=== PATIENT | female | born 2000 | race Two or more races ===

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

== ENCOUNTER 2022-04-14 12:48 | Emergency (ER) | payer OTHER, SELFPAY ==
--- NOTE | ~2022-04-14 | XR_ITS ---
EXAMINATION: XR SHOULDER, RIGHT CLINICAL INFORMATION: Injury, pain COMPARISON: None TECHNIQUE: AP external rotation, Grashey, scapular Y, and axillary views of the right shoulder. FINDINGS: No visible acute fracture or dislocation. Glenohumeral and acromioclavicular alignment is anatomic with normal joint space. No abnormal soft tissue calcifications. XR/XR shoulder RT min 2V IMPRESSION: No evidence of acute osseous abnormality.
[2022-04-14 13:21] VITALS: BP 113/75; PULSE 76; RESP 18; TEMP 36.7; O2SAT 98; BMI 35.3
--- NOTE | 2022-04-14 13:23 | ED_ITS ---
HPI - Extremity Injury (Upper) General Chief Complaint: Extremity Problem <Patricia Le NP - Last Filed: 04/14/22 13:24> Stated Complaint: r shoulder inj work related <Patricia Le NP - Last Filed: 04/14/22 13:24> Time Seen by Provider: 04/14/22 16:14 <Patricia Le NP - Last Filed: 04/14/22 13:24> Source: patient <BARBARA Holman - Last Filed: 04/14/22 17:51> Mode of arrival: ambulatory <BARBARA Holman - Last Filed: 04/14/22 17:51> Limitations: no limitations <BARBARA Holman Last Filed: 04/14/22 17:51> History of Present Illness HPI narrative: 21-year-old female presents to ED for right shoulder pain after her patient fell onto her shoulder earlier this morning. Patient states pain of right shoulder when she moves her shoulder. Patient denies any head trauma or any other concerning traumatic or physical complaints. <BARBARA Holman - Last Filed: 04/14/22 17:51> Related Data Home Medications: Previous Rx's Medication Instructions Recorded ondansetron HCl 4 mg tablet 4 mg PO Q8H PRN nausea and 11/20/20 (Zofran) vomiting #10 tabs cephalexin 500 mg capsule 500 mg PO QID 10 days #40 caps 07/18/21 doxycycline hyclate 100 mg tablet 100 mg PO BID #20 tabs 07/18/21 cyclobenzaprine 10 mg tablet 10 mg PO BEDTIME PRN muscle spasm 04/14/22 7 days #7 tabs ibuprofen 400 mg tablet 400 mg PO Q6H PRN pain 7 days #28 04/14/22 tabs prednisone 20 mg tablet 40 mg PO DAILY 5 days #10 tabs 04/14/22 <Patricia Le NP - Last Filed: 04/14/22 13:24> Allergies/Adverse Reactions: Allergies Allergy/AdvReac Type Severity Reaction Status Date / Time No Known Allergies Allergy Verified 12/30/21 20:58 <Patricia Le NP - Last Filed: 04/14/22 13:24> Review of Systems Review of Systems: Right shoulder pain <BARBARA Holman - Last Filed: 04/14/22 17:51> Yes all other systems are reviewed and are negative <BARBARA Holman - Last Filed: 04/14/22 17:51> [facility] Social History Social History: Social History Advance Directives: No Advance Directives Information Provided: No <Patricia Le NP - Last Filed: 04/14/22 13:24> Physical Exam Vital Signs: Vital Signs: Last Vital Signs Temp 98.0 F 04/14/22 13:21 Pulse 76 04/14/22 13:21 Resp 18 04/14/22 13:21 BP 113/75 04/14/22 13:21 Pulse Ox 98 04/14/22 13:21 O2 Del Method 04/14/22 13:21 BMI result Body Mass Index 35.3 <Patricia Le NP - Last Filed: 04/14/22 13:24> Vital Signs: Last Vital Signs Temp 98.0 F 04/14/22 13:21 Pulse 76 04/14/22 13:21 Resp 18 04/14/22 13:21 BP 113/75 04/14/22 13:21 Pulse Ox 98 04/14/22 13:21 O2 Del Method 04/14/22 13:21 BMI result Body Mass Index 35.3 <BARBARA Holman - Last Filed: 04/14/22 17:51> Const: General: cooperative, healthy appearing, comfortable, no acute distress, well developed, alert, awake and Physically active <BARBARA Holman - Last Filed: 04/14/22 17:51> Orientation/consciousness: oriented to person, oriented to place, oriented to time and patient oriented x3 <BARBARA Holman - Last Filed: 04/14/22 17:51> HEENT: Head: Yes normal to inspection, Yes No palpable skull fracture present, Yes normocephalic, Yes atraumatic and No abrasion <BARBARA Holman - Last Filed: 04/14/22 17:51> Eyes: General: appearance normal, both eyes and all related structures <BARBARA Holman - Last Filed: 04/14/22 17:51> Neck: Neck: Yes normal visual inspection, Yes full ROM, Yes no lymphadenop athy, Yes no meningeal signs, Yes trachea midline, Yes supple, No anterior neck swelling and No tender <BARBARA Holman Last Filed: 04/14/22 17:51> Chest: Chest palpation & inspection: normal inspection of the chest and normal palpation of entire chest wall <BARBARA Holman Last Filed: 04/14/22 17:51> Resp: Effort & Inspection: normal respiratory effort and able to speak in complete sentences <BARBARA Holman Last Filed: 04/14/22 17:51> Auscultation: clear to auscultation bilaterally <BARBARA Holman Last Filed: 04/14/22 17:51> Cardio: Jugular venous distension: no JVD <BARBARA Holman Last Filed: 04/14/22 17:51> Heart sounds: S1 normal heart sound present and S2 normal heart sound present <BARABRA Holman Last Filed: 04/14/22 17:51> GI: Inspection: Yes normal to inspection and No abdominal wall ecchymosis <BARBARA Holman Last Filed: 04/14/22 17:51> Palpation (GI): Soft to palpation, not firm, nontender, no guarding and not rigid <BARBARA Holman Last Filed: 04/14/22 17:51> : General: No CVA tenderness and Yes no CVA tenderness <BARBARA Holman Last Filed: 04/14/22 17:51> Back/Spine/Pelvis: Back: no CVA tenderness, No CVA tenderness and No back tenderness <BARBARA Holman Last Filed: 04/14/22 17:51> Skin: General skin exam: no rashes or lesions noted, elasticity normal and turgor normal <BARBARA Holman Last Filed: 04/14/22 17:51> Neuro: General: oriented to person, oriented to place, oriented to time, patient oriented x3, gait normal, tone normal, moves all extremities, Normal light touch and pain sensation, no meningeal signs, no focal motor deficits, CN's II-XI intact bilaterally and normal sensation to monofilament <BARBARA Holman - Last Filed: 04/14/22 17:51> Extrem: General: Yes normal to inspection and Yes full ROM <BARBARA Holman - Last Filed: 04/14/22 17:51> Shoulder/upper arm images: 1. Positive for tenderness on palpation. Positive for pain on range of motion. Negative for crepitus, deformity, episode Siddharth, erythema, swelling. Rest of extremity normal. Neurovascular exam intact. Motor exam is limited due to shoulder pain. <Patricia Le NP - Last Filed: 04/14/22 13:24> Shoulder/upper arm images: 1. Positive for tenderness on palpation. Positive for pain on range of motion. Negative for crepitus, deformity, episode Siddharth, erythema, swelling. Rest of extremity normal. Neurovascular exam intact. Motor exam is limited due to shoulder pain. <BARBARA Holman - Last Filed: 04/14/22 17:51> Psych: Appearance: grossly normal, well kempt and not disheveled <BARBARA Holman Last Filed: 04/14/22 17:51> Course Course Course Narrative: This is a rapid medical exam. 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 21-year-old female previously healthy here with right shoulder pain after an injury which occurred at work today. Will check x-rays. Vitals stable <Patricia Le NP - Last Filed: 04/14/22 13:24> Reevaluation(s) Reevaluation #1: Patient has range of motion of shoulder but with pain. X-ray negative for fracture or dislocation. Patient educated on possibility of rotator cuff/any other muscle tear/ligament injury due to trauma. Patient requests sling. Patient informed not to stay in sling for long hours so she will not get frozen shoulder. Patient will be discharged on pain medication steroids and muscle relaxer. Patient informed she may need follow-up with primary care to get MRI machine is no muscle/ligament/tendon injury tear of right shoulder. <BARBARA Holman - Last Filed: 04/14/22 17:51> Time: 16:42 <BARBARA Holman Last Filed: 04/14/22 17:51> Medications Administered Discontinued Medications Generic Name Dose Route Start Last Admin Trade Name Freq PRN Reason Stop Dose Admin Ibuprofen 800 mg 04/14/22 16:21 04/14/22 17:00 Ibuprofen 800 Mg Tablet PO 04/14/22 16:22 800 mg ONCE ONE Administration Prednisone 40 mg 04/14/22 16:23 04/14/22 17:00 Prednisone 20 Mg Tablet PO 04/14/22 16:24 40 mg ONCE ONE Administration <Patricia Le NP - Last Filed: 04/14/22 13:24> Medications Administered Discontinued Medications Generic Name Dose Route Start Last Admin Trade Name Aricq PRN Reason Stop Dose Admin Ibuprofen 800 mg 04/14/22 16:21 04/14/22 17:00 Ibuprofen 800 Mg Tablet PO 04/14/22 16:22 800 mg ONCE ONE Administration Prednisone 40 mg 04/14/22 16:23 04/14/22 17:00 Prednisone 20 Mg Tablet PO 04/14/22 16:24 40 mg ONCE ONE Administration <BARBARA Holman - Last Filed: 04/14/22 17:51> Medical Decision Making Medical Decision Making MDM Narrative: 21 yold RIght shoulder pain after patient fell on right shoulder. X-ray ordered. Patient in distress <BARBARA Holman - Last Filed: 04/14/22 17:51> Differential Diagnosis Differential Diagnoses: The differential diagnosis associated with the presentation includes (Shoulder dislocation, shoulder fracture, tendon injury, shoulder muscle injury) <BARBARA Holman - Last Filed: 04/14/22 17:51> Radiology Impression Discussion of test interpretation with radiology: I have reviewed the radiologist's reading. <BARBARA Holman - Last Filed: 04/14/22 17:51> Prescription Management I considered prescription management with: Pain Medication <BARABRA Holman - Last Filed: 04/14/22 17:51> Sling <BARBARA Holman - Last Filed: 04/14/22 17:51> Discharge Plan Discharge Clinical Impression: Sprain of right shoulder <Patricia Le NP - Last Filed: 04/14/22 13:24> Patient Disposition: Home, Self-Care <Patricia eL NP - Last Filed: 04/14/22 13:24> Instructions: Shoulder Sprain (ED) <Patricia Le NP - Last Filed: 04/14/22 13:24> Additional Instructions: If pain does not improve you will need follow-up with your primary care provider for MRI to make sure there is no muscle/tendon/ligament injury. Will be discharged with pain medication, steroids, and muscle relaxer. Return to the ED immediately for any swelling of extremity, inability to move, fever, chills, bluish black discoloration, chest pain, shortness of breath, or any other concer duran symptoms. Sling should not be kept on for long hours. At times remove sling to move right upper extremity to prevent frozen shoulder.. <Patricia Le NP - Last Filed: 04/14/22 13:24> Prescriptions: New prednisone 20 mg tablet 40 mg PO DAILY 5 Days Qty: 10 0RF cyclobenzaprine 10 mg tablet 10 mg PO BEDTIME PRN (Reason: muscle spasm) 7 Days Qty: 7 0RF Rx Instructions: side effect is drowsiness. ibuprofen 400 mg tablet 400 mg PO Q6H PRN (Reason: pain) 7 Days Qty: 28 0RF No Action ondansetron HCl [Zofran] 4 mg tablet 4 mg PO Q8H PRN (Reason: nausea and vomiting) Qty: 10 0RF cephalexin 500 mg capsule 500 mg PO QID 10 Days Qty: 40 0RF doxycycline hyclate 100 mg tablet 100 mg PO BID Qty: 20 0RF <Patricia Le NP - Last Filed: 04/14/22 13:24> Stand Alone Forms: Work/School Release <Patricia Le NP - Last Filed: 04/14/22 13:24> Discharge Date/Time: 04/14/22 17:47 <Patricia Le NP - Last Filed: 04/14/22 13:24> Print Language: Kiswahili <Patricia Le NP - Last Filed: 04/14/22 13:24>
[2022-04-14] MEDS: predniSONE 20 MG TABLET 40 MG PO (17:00)
[2022-04-14] MEDS: Ibuprofen 800 MG TABLET PO (17:00)
== END 2022-04-14 17:47 | disposition home or self-care (01) ==
PROVIDERS: Emergency Provider Emergency Medicine Emergency Medical Services
DX: S43.401A Unspecified sprain of right shoulder joint, initial encounter (principal); M25.511 Pain in right shoulder; X58.XXXA Exposure to other specified factors, initial encounter; Y93.9 Activity, unspecified; Y92.9 Unspecified place or not applicable; Y99.9 Unspecified external cause status; Z79.899 Other long term (current) drug therapy
CPT/HCPCS: 73030; 99283

== ENCOUNTER 2022-07-23 18:54 | Emergency (ER) | payer MEDICAID, SELFPAY ==
--- NOTE | ~2022-07-23 | US_ITS ---
EXAMINATION: US ABDOMEN LIMITED CLINICAL INFORMATION: Right upper quadrant pain, nausea, vomiting and diarrhea. COMPARISON: None available. TECHNIQUE: Real-time imaging of the right upper quadrant abdominal viscera. FINDINGS: PANCREAS: Largely obscured by overlapping bowel gas. LIVER: Normal. The liver is normal in size. The liver contour is normal. Parenchymal echogenicity is normal. No focal hepatic lesion. There is no intrahepatic biliary duct dilatation seen. GALLBLADDER: Normal. The gallbladder is physiologically distended without evidence of stones, sludge, polyps, wall thickening or pericholecystic fluid. COMMON BILE DUCT: Normal in caliber measuring 0.3 cm in diameter. RIGHT KIDNEY: Normal. No hydronephrosis. No renal calculi or focal parenchymal lesions. The kidney measures 10.0 cm in maximum dimension. FREE FLUID: None. US/US abdomen limited IMPRESSION: Unremarkable examination, with imaging of the pancreas technically limited.
[2022-07-23 19:17] VITALS: BP 122/87; PULSE 120; RESP 18; TEMP 37.1; O2SAT 100; BMI 35.1
--- NOTE | 2022-07-23 19:18 | ED.NAVMDI ---
HPI - Nausea/Vomiting/Diarrhea General Chief complaint: Nausea/Vomiting/Diarrhea <BARBARA Ureña - Last Filed: 07/23/22 19:21> Stated complaint: vomiting blood, stomach pressure <BARBARA Ureña - Last Filed: 07/23/22 19:21> Time Seen by Provider: 07/23/22 22:54 <BARBARA Ureña - Last Filed: 07/23/22 19:21> Source: patient, RN notes reviewed and old records reviewed <Wyatt Canales - Last Filed: 07/23/22 23:14> Mode of arrival: ambulatory <Wyatt Canales - Last Filed: 07/23/22 23:14> Limitations: no limitations <Wyatt Canales - Last Filed: 07/23/22 23:14> History of Present Illness HPI Narrative: 22-year-old female with past medical history significant for PCOS presents for evaluation of abdominal pain and vomiting patient reports that she woke up with the symptoms this morning. She denies any recent travel. She does states that her mother was recently traveling to [place] and has similar symptoms at home patient reports upper abdominal pain. She describes vomiting dark colored stuff. She also believes that she has bloody bowel movements when I asked her which color she states yellow. denies any history of GI bleed or anticoagulation use <Wyatt Canales - Last Filed: 07/23/22 23:14> Associated nausea: Yes <Wyatt Canales - Last Filed: 07/23/22 23:14> Related Data Home medications: Previous Rx's Medication Instructions Recorded ondansetron HCl 4 mg tablet 4 mg PO Q8H PRN nausea and 11/20/20 (Zofran) vomiting #10 tabs cephalexin 500 mg capsule 500 mg PO QID 10 days #40 caps 07/18/21 doxycycline hyclate 100 mg tablet 100 mg PO BID #20 tabs 07/18/21 cyclobenzaprine 10 mg tablet 10 mg PO BEDTIME PRN muscle spasm 04/14/22 7 days #7 tabs ibuprofen 400 mg tablet 400 mg PO Q6H PRN pain 7 days #28 04/14/22 tabs prednisone 20 mg tablet 40 mg PO DAILY 5 days #10 tabs 04/14/22 omeprazole 20 mg tablet,delayed 20 mg PO DAILY #14 tabs 07/23/22 release ondansetron 4 mg disintegrating 4 mg PO Q8H PRN nausea and 07/23/22 tablet vomiting #20 tabs <BARBARA Ureña - Last Filed: 07/23/22 19:21> Allergies/Adverse reactions: Allergies Allergy/AdvReac Type Severity Reaction Status Date / Time No Known Allergies Allergy Verified 07/23/22 19:17 <BARBARA Ureña - Last Filed: 07/23/22 19:21> Review of Systems Constitutional: Constitutional: Denies headache(s), Reports malaise and Reports weakness <Wyatt Canales - Last Filed: 07/23/22 23:14> Eyes: Eyes: Denies blurry vision <Wyatt Canales - Last Filed: 07/23/22 23:14> ENT: Denies headache(s) <Wyattnito Canales - Last Filed: 07/23/22 23:14> Cardiovascular: Cardiovascular: Denies chest pain and Denies dyspnea <Wyattnito Canales - Last Filed: 07/23/22 23:14> Respiratory: Respiratory: Denies cough and Denies dyspnea <Wyatt ONick - Last Filed: 07/23/22 23:14> Gastrointestinal: Gastrointestinal: Reports abdominal pain, Reports change in stool character, Reports coffee ground emesis, Reports dyspepsia, Reports nausea and Reports vomiting <Wyattnito Patricky - Last Filed: 07/23/22 23:14> Musculoskeletal: Musculoskeletal: Denies back pain <Wyatt Canales - Last Filed: 07/23/22 23:14> Neurologic: Denies headache(s) and Reports weakness <Wyattnito Canales - Last Filed: 07/23/22 23:14> Psychiatric: Psychiatric: Denies anxiety <Wyatt Patricky - Last Filed: 07/23/22 23:14> COUNTS INCLUDE 234 BEDS AT THE [facility] Social History Social History: Social History Advance Directives: No Advance Directives Information Provided: No <BARBARA Ureña - Last Filed: 07/23/22 19:21> Physical Exam Vital Signs: Vital Signs: Last Vital Signs Temp 98.8 F 07/23/22 19:17 Pulse 120 H 07/23/22 19:17 Resp 18 07/23/22 19:17 BP 122/87 07/23/22 19:17 Pulse Ox 100 07/23/22 19:17 O2 Del Method Room Air 07/23/22 19:17 BMI result Body Mass Index 35.1 <BARBARA Ureña - Last Filed: 07/23/22 19:21> Vital Signs: Last Vital Signs Temp 98.8 F 07/23/22 19:17 Pulse 120 H 07/23/22 19:17 Resp 18 07/23/22 19:17 BP 122/87 07/23/22 19:17 Pulse Ox 100 07/23/22 19:17 O2 Del Method Room Air 07/23/22 19:17 BMI result Body Mass Index 35.1 <Wyatt Canales - Last Filed: 07/23/22 23:14> Const: General: healthy appearing, comfortable, no acute distress, alert and awake <Wyatt Canales - Last Filed: 07/23/22 23:14> Nutritional Appearance: well nourished <Wyatt Canales - Last Filed: 07/23/22 23:14> Orientation/consciousness: patient oriented x3 <Wyatt Canales - Last Filed: 07/23/22 23:14> HEENT: Head: Yes normocephalic and Yes atraumatic <Wyatt Canales - Last Filed: 07/23/22 23:14> Neck: Neck: Yes full ROM <Wyatt Canales - Last Filed: 07/23/22 23:14> Resp: Effort & Inspection: normal respiratory effort, able to speak in complete sentences, no audible wheezes and not labored <Wyatt Canales - Last Filed: 07/23/22 23:14> Auscultation: clear to auscultation bilaterally <Wyatt Canales Last Filed: 07/23/22 23:14> Cardio: Rate: regular rate <Wyatt Canales - Last Filed: 07/23/22 23:14> Rhythm: regular rhythm <Wyatt Canales - Last Filed: 07/23/22 23:14> GI: Inspection: No distended <Wyatt Canales - Last Filed: 07/23/22 23:14> Palpation (GI): Soft to palpation, not firm, nontender, no guarding and not rigid <Wyatt Canales - Last Filed: 07/23/22 23:14> Auscultation: normoactive bowel sounds <Wyatt Patricky - Last Filed: 07/23/22 23:14> Rectal Exam - Female: deferred ( patient declined rectal examination) <Wyatt Patricky - Last Filed: 07/23/22 23:14> Skin: General skin exam: no rashes or lesions noted and elasticity normal <Wyattnito Patrick Last Filed: 07/23/22 23:14> Neuro: General: patient oriented x3 <Wyattnito Patrick Last Filed: 07/23/22 23:14> Cranial nerves: Yes CN's II-XII intact bilaterally and Yes Bilaterally intact EOM present <Wyattnito Canales Last Filed: 07/23/22 23:14> Cognition (Neuro): normal cognition <Wyatt Canales Last Filed: 07/23/22 23:14> Course Course Course Narrative: RME - 22 y/o female with history of PCOS who presents to the ER for evaluation of constant central abdominal pains, nausea, coffee ground emesis, and yellow watery diarrhea that started last night. Recently visited her mom who had similar symptoms. Tachycardic in triage with RUQ tenderness on examination. Plan: lab workup and U/S RUQ <BARBARA Ureña - Last Filed: 07/23/22 19:21> Medical Decision Making Medical Decision Making MDM Narrative: 22-year-old female presents for evaluation of abdominal pain, vomiting and diarrhea. No risk factors for C diff. she reports vomiting dark color which she described as coffee-ground emesis. The patient has not vomited in the 4 hour she has been in the emergency department. She declines rectal examination to perform guaiac testing. I held a low suspicion the patient has an active GI bleed. Her hemoglobin and hematocrit are consistent with her baseline. her BUN to creatinine ratio is not indicative of a GI bleed. the patient was initially tachycardic to 120 but this improved without intervention. Will discharge the patient with Protonix, Zoisai have her follow-up with GI as an outpatient for endoscopy. the patient's T bili was elevated to 1.5, but ultrasound gallbladder was unremarkable <Wyatt IrwinИринаNick - Last Filed: 07/23/22 23:14> Differential Diagnosis gastroenteritis Peptic ulcer disease GI bleed viral syndrome <Wyatt IrwinИринаNick - Last Filed: 07/23/22 23:14> Lab Data MDM Lab Attestation statement: I reviewed the patient's lab results. <Wyatt RufusFairhope - Last Filed: 07/23/22 23:14> no significant lab abnormalities <Wyatt Canales - Last Filed: 07/23/22 23:14> Result Diagrams: 07/23/22 19:29 07/23/22 19:29 <BARBARA Ureña - Last Filed: 07/23/22 19:21> Labs: Lab Results 07/23/22 07/23/22 07/23/22 Range/Units 19:29 19:29 19:29 WBC 9.2 (4.8-10.8) X10*3/uL RBC 4.79 (4.20-5.50) X10*6/uL Hgb 12.9 (12.0-16.0) g/dl Hct 40.2 (37.0-47.0) % MCV 83.9 (80.0-98.0) fL MCH 26.9 L (27.0-33.0) pg MCHC 32.1 (31.0-35.0) g/dl RDW 12.8 (11.0-16.0) % Plt Count 263 D (160-400) X10*3/uL MPV 9.8 (9.4-12.3) fL Immature Gran % (Auto) 0.2 (0.0-0.4) % Neut % (Auto) 83.4 H (45-73) % Lymph % (Auto) 8.8 L (20-40) % [place] % (Auto) 7.2 (2-11) % Eos % (Auto) 0.2 (0-4) % Baso % (Auto) 0.2 (0-2) % Lymph # (Auto) 0.8 L (1.2-4.9) X10*3/uL [place] # (Auto) 0.7 (0.1-1.2) X10*3/uL Eos # (Auto) 0.0 (0.0-0.4) X10*3/uL Baso # (Auto) 0.0 (0.0-0.2) X10*3/uL Abs Immat Gran (auto) 0.02 (0.00-0.03) X10*3/uL Absolute Neuts (auto) 7.6 (2.0-8.3) x10*3/uL Absolute Nucleated RBC 0.000 (0.0-0.012) X10*3/uL Nucleated RBC % (auto) 0.0 (0.0-0.2) /100WBC PT 12.0 (10.0-13.1) SEC INR 1.0 (0.9-1.1) APTT 33.0 (26.0-36.4) SEC Sodium 142 (135-145) mmol/L Potassium 4.2 (3.3-5.1) mmol/L Chloride 107 (96-108) mmol/L Carbon Dioxide 25 (22-29) mmol/L Anion Gap 14 (12-20) BUN 9 (9-16) mg/dL Creatinine 0.76 (0.5-1.4) mg/dL Estim Creat Clear Calc 107.1 Estimated GFR > 60 Random Glucose 97 (60-115) mg/dL Calcium 9.0 D (8.4-10.2) mg/dL Magnesium 1.7 (1.6-2.6) mg/dL Total Bilirubin 1.5 H (0.0-1.0) mg/dL Direct Bilirubin 0.4 (0.0-0.5) mg/dL AST 16 (5-31) U/L ALT 21 (0-31) U/L Alkaline Phosphatase 91 (39-117) U/L Total Protein 7.0 (6.5-8.0) g/dL Albumin 4.3 (3.5-5.0) g/dL Lipase 15 (8-78) U/L Urine Color Urine Appearance Urine pH (5.0-9.0) Ur Specific [place] (1.005-1.025) Urine Protein (Neg-Trace) mg/dL Urine Glucose (UA) (Negative) mg/dL Urine Ketones (Negative) mg/dL Urine Blood (Negative) Urine Nitrite (Negative) Ur Leukocyte Esterase (Negative) Urine Test (NEGATIVE) Urine Opiates Screen (Not Detect) Urine Fentanyl Screen (Not Detect) Ur Barbiturates Screen (Not Detect) Ur Phencyclidine Scrn (Not Detect) Ur Amphetamines Screen (Not Detect) U Benzodiazepines Scrn (Not Detect) Urine Cocaine Screen (Not Detect) U Marijuana (THC) Screen (Not Detect) Ethyl Alcohol < 10 mg/dL 07/23/22 07/23/22 07/23/22 Range/Units 19:29 19:29 19:29 WBC (4.8-10.8) X10*3/uL RBC (4.20-5.50) X10*6/uL Hgb (12.0-16.0) g/dl Hct (37.0-47.0) % MCV (80.0-98.0) fL MCH (27.0-33.0) pg MCHC (31.0-35.0) g/dl RDW (11.0-16.0) % Plt Count (160-400) X10*3/uL MPV (9.4-12.3) fL Immature Gran % (Auto) (0.0-0.4) % Neut % (Auto) (45-73) % Lymph % (Auto) (20-40) % Greenlee % (Auto) (2-11) % Eos % (Auto) (0-4) % Baso % (Auto) (0-2) % Lymph # (Auto) (1.2-4.9) X10*3/uL [place] # (Auto) (0.1-1.2) X10*3/uL Eos # (Auto) (0.0-0.4) X10*3/uL Baso # (Auto) (0.0-0.2) X10*3/uL Abs Immat Gran (auto) (0.00-0.03) X10*3/uL Absolute Neuts (auto) (2.0-8.3) x10*3/uL Absolute Nucleated RBC (0.0-0.012) X10*3/uL Nucleated RBC % (auto) (0.0-0.2) /100WBC PT (10.0-13.1) SEC INR (0.9-1.1) APTT (26.0-36.4) SEC Sodium (135-145) mmol/L Potassium (3.3-5.1) mmol/L Chloride (96-108) mmol/L Carbon Dioxide (22-29) mmol/L Anion Gap (12-20) BUN (9-16) mg/dL Creatinine (0.5-1.4) mg/dL Estim Creat Clear Calc Estimated GFR Random Glucose (60-115) mg/dL Calcium (8.4-10.2) mg/dL Magnesium (1.6-2.6) mg/dL Total Bilirubin (0.0-1.0) mg/dL Direct Bilirubin (0.0-0.5) mg/dL AST (5-31) U/L ALT (0-31) U/L Alkaline Phosphatase (39-117) U/L Total Protein (6.5-8.0) g/dL Albumin (3.5-5.0) g/dL Lipase (8-78) U/L Urine Color Yellow Urine Appearance Cloudy Urine pH 6.0 (5.0-9.0) Ur Specific [place] 1.025 (1.005-1.025) Urine Protein Negative (Neg-Trace) mg/dL Urine Glucose (UA) Negative (Negative) mg/dL Urine Ketones Negative (Negative) mg/dL Urine Blood Negative (Negative) Urine Nitrite Negative (Negative) Ur Leukocyte Esterase Negative (Negative) Urine Test NEGATIVE (NEGATIVE) Urine Opiates Screen Not Detected (Not Detect) Urine Fentanyl Screen Not Detected (Not Detect) Ur Barbiturates Screen Not Detected (Not Detect) Ur Phencyclidine Scrn Not Detected (Not Detect) Ur Amphetamines Screen Not Detected (Not Detect) U Benzodiazepines Scrn Not Detected (Not Detect) Urine Cocaine Screen Not Detected (Not Detect) U Marijuana (THC) Screen Not Detected (Not Detect) Ethyl Alcohol mg/dL <BARBARA Ureña - Last Filed: 07/23/22 19:21> Lab Results 07/23/22 07/23/22 07/23/22 Range/Units 19:29 19:29 19:29 WBC 9.2 (4.8-10.8) X10*3/uL RBC 4.79 (4.20-5.50) X10*6/uL Hgb 12.9 (12.0-16.0) g/dl Hct 40.2 (37.0-47.0) % MCV 83.9 (80.0-98.0) fL MCH 26.9 L (27.0-33.0) pg MCHC 32.1 (31.0-35.0) g/dl RDW 12.8 (11.0-16.0) % Plt Count 263 D (160-400) X10*3/uL MPV 9.8 (9.4-12.3) fL Immature Gran % (Auto) 0.2 (0.0-0.4) % Neut % (Auto) 83.4 H (45-73) % Lymph % (Auto) 8.8 L (20-40) % Greenlee % (Auto) 7.2 (2-11) % Eos % (Auto) 0.2 (0-4) % Baso % (Auto) 0.2 (0-2) % Lymph # (Auto) 0.8 L (1.2-4.9) X10*3/uL [place] # (Auto) 0.7 (0.1-1.2) X10*3/uL Eos # (Auto) 0.0 (0.0-0.4) X10*3/uL Baso # (Auto) 0.0 (0.0-0.2) X10*3/uL Abs Immat Gran (auto) 0.02 (0.00-0.03) X10*3/uL Absolute Neuts (auto) 7.6 (2.0-8.3) x10*3/uL Absolute Nucleated RBC 0.000 (0.0-0.012) X10*3/uL Nucleated RBC % (auto) 0.0 (0.0-0.2) /100WBC PT 12.0 (10.0-13.1) SEC INR 1.0 (0.9-1.1) APTT 33.0 (26.0-36.4) SEC Sodium 142 (135-145) mmol/L Potassium 4.2 (3.3-5.1) mmol/L Chloride 107 (96-108) mmol/L Carbon Dioxide 25 (22-29) mmol/L Anion Gap 14 (12-20) BUN 9 (9-16) mg/dL Creatinine 0.76 (0.5-1.4) mg/dL Estim Creat Clear Calc 107.1 Estimated GFR > 60 Random Glucose 97 (60-115) mg/dL Calcium 9.0 D (8.4-10.2) mg/dL Magnesium 1.7 (1.6-2.6) mg/dL Total Bilirubin 1.5 H (0.0-1.0) mg/dL Direct Bilirubin 0.4 (0.0-0.5) mg/dL AST 16 (5-31) U/L ALT 21 (0-31) U/L Alkaline Phosphatase 91 (39-117) U/L Total Protein 7.0 (6.5-8.0) g/dL Albumin 4.3 (3.5-5.0) g/dL Lipase 15 (8-78) U/L Urine Color Urine Appearance Urine pH (5.0-9.0) Ur Specific [place] (1.005-1.025) Urine Protein (Neg-Trace) mg/dL Urine Glucose (UA) (Negative) mg/dL Urine Ketones (Negative) mg/dL Urine Blood (Negative) Urine Nitrite (Negative) Ur Leukocyte Esterase (Negative) Urine Test (NEGATIVE) Urine Opiates Screen (Not Detect) Urine Fentanyl Screen (Not Detect) Ur Barbiturates Screen (Not Detect) Ur Phencyclidine Scrn (Not Detect) Ur Amphetamines Screen (Not Detect) U Benzodiazepines Scrn (Not Detect) Urine Cocaine Screen (Not Detect) U Marijuana (THC) Screen (Not Detect) Ethyl Alcohol < 10 mg/dL 07/23/22 07/23/22 07/23/22 Range/Units 19:29 19:29 19:29 WBC (4.8-10.8) X10*3/uL RBC (4.20-5.50) X10*6/uL Hgb (12.0-16.0) g/dl Hct (37.0-47.0) % MCV (80.0-98.0) fL MCH (27.0-33.0) pg MCHC (31.0-35.0) g/dl RDW (11.0-16.0) % Plt Count (160-400) X10*3/uL MPV (9.4-12.3) fL Immature Gran % (Auto) (0.0-0.4) % Neut % (Auto) (45-73) % Lymph % (Auto) (20-40) % [place] % (Auto) (2-11) % Eos % (Auto) (0-4) % Baso % (Auto) (0-2) % Lymph # (Auto) (1.2-4.9) X10*3/uL [place] # (Auto) (0.1-1.2) X10*3/uL Eos # (Auto) (0.0-0.4) X10*3/uL Baso # (Auto) (0.0-0.2) X10*3/uL Abs Immat Gran (auto) (0.00-0.03) X10*3/uL Absolute Neuts (auto) (2.0-8.3) x10*3/uL Absolute Nucleated RBC (0.0-0.012) X10*3/uL Nucleated RBC % (auto) (0.0-0.2) /100WBC PT (10.0-13.1) SEC INR (0.9-1.1) APTT (26.0-36.4) SEC Sodium (135-145) mmol/L Potassium (3.3-5.1) mmol/L Chloride (96-108) mmol/L Carbon Dioxide (22-29) mmol/L Anion Gap (12-20) BUN (9-16) mg/dL Creatinine (0.5-1.4) mg/dL Estim Creat Clear Calc Estimated GFR Random Glucose (60-115) mg/dL Calcium (8.4-10.2) mg/dL Magnesium (1.6-2.6) mg/dL Total Bilirubin (0.0-1.0) mg/dL Direct Bilirubin (0.0-0.5) mg/dL AST (5-31) U/L ALT (0-31) U/L Alkaline Phosphatase (39-117) U/L Total Protein (6.5-8.0) g/dL Albumin (3.5-5.0) g/dL Lipase (8-78) U/L Urine Color Yellow Urine Appearance Cloudy Urine pH 6.0 (5.0-9.0) Ur Specific [place] 1.025 (1.005-1.025) Urine Protein Negative (Neg-Trace) mg/dL Urine Glucose (UA) Negative (Negative) mg/dL Urine Ketones Negative (Negative) mg/dL Urine Blood Negative (Negative) Urine Nitrite Negative (Negative) Ur Leukocyte Esterase Negative (Negative) Urine Test NEGATIVE (NEGATIVE) Urine Opiates Screen Not Detected (Not Detect) Urine Fentanyl Screen Not Detected (Not Detect) Ur Barbiturates Screen Not Detected (Not Detect) Ur Phencyclidine Scrn Not Detected (Not Detect) Ur Amphetamines Screen Not Detected (Not Detect) U Benzodiazepines Scrn Not Detected (Not Detect) Urine Cocaine Screen Not Detected (Not Detect) U Marijuana (THC) Screen Not Detected (Not Detect) Ethyl Alcohol mg/dL <Wyatt Canales - Last Filed: 07/23/22 23:14> Discharge Plan Discharge Clinical Impression: Abdominal pain, vomiting, and diarrhea <BARBARA Ureña - Last Filed: 07/23/22 19:21> Patient Disposition: Home, Self-Care <BARBARA Ureña - Last Filed: 07/23/22 19:21> Instructions: Gastroenteritis (ED) <BARBARA Ureña - Last Filed: 07/23/22 19:21> Additional Instructions: your workup in the emergency room today was reassuring. Take Zofran as needed for any further nausea and vomiting. Take omeprazole daily for the next 2 weeks. follow-up with GI, Dr. Garcia, as you may need a colonoscopy / endoscopy to evaluate for any source of bleeding <BARBARA Ureña - Last Filed: 07/23/22 19:21> Prescriptions: New omeprazole 20 mg tablet,delayed release (DR/EC) 20 mg PO DAILY Qty: 14 0RF ondansetron 4 mg tablet,disintegrating 4 mg PO Q8H PRN (Reason: nausea and vomiting) Qty: 20 0RF No Action ondansetron HCl [Zofran] 4 mg tablet 4 mg PO Q8H PRN (Reason: nausea and vomiting) Qty: 10 0RF cephalexin 500 mg capsule 500 mg PO QID 10 Days Qty: 40 0RF doxycycline hyclate 100 mg tablet 100 mg PO BID Qty: 20 0RF prednisone 20 mg tablet 40 mg PO DAILY 5 Days Qty: 10 0RF cyclobenzaprine 10 mg tablet 10 mg PO BEDTIME PRN (Reason: muscle spasm) 7 Days Qty: 7 0RF Rx Instructions: side effect is drowsiness. ibuprofen 400 mg tablet 400 mg PO Q6H PRN (Reason: pain) 7 Days Qty: 28 0RF <BARBARA Ureña - Last Filed: 07/23/22 19:21> Referrals: Siva Garcia [Physician] - (? Stomach ulcer) <BARBARA Ureña - Last Filed: 07/23/22 19:21>
[2022-07-23 19:40] LABS: MANUAL DIFF FLAG NO
[2022-07-23 19:43] LABS: Basophils Percent Auto 0.2 % (0-2); Eosinophils Percent Auto 0.2 % (0-4); Hematocrit 40.2 % (37.0-47.0); Hemoglobin 12.9 g/dl (12.0-16.0); Imm Gran Abs Auto 0.02 X10*3/uL (0.00-0.03); Imm Gran Pct Auto 0.2 % (0.0-0.4); Lymphocytes Absolute Auto 0.8 X10*3/uL (1.2-4.9); Lymphocytes Percent Auto 8.8 % (20-40); Mean Corpuscular HGB Conc 32.1 g/dl (31.0-35.0); Mean Corpuscular Hemoglobin 26.9 pg (27.0-33.0); Mean Corpuscular Volume 83.9 fL (80.0-98.0); Mean Platelet Volume 9.8 fL (9.4-12.3); Monocytes Absolute Auto 0.7 X10*3/uL (0.1-1.2); Monocytes Percent Auto 7.2 % (2-11); Neutrophils Absolute Auto 7.6 x10*3/uL (2.0-8.3); Neutrophils Percent Auto 83.4 % (45-73); Platelet Count 263 X10*3/uL (160-400); Red Blood Count 4.79 X10*6/uL (4.20-5.50); Red Cell Distribution Width 12.8 % (11.0-16.0); White Blood Count 9.2 X10*3/uL (4.8-10.8)
[2022-07-23 19:45] LABS: Appearance Urine Cloudy; Color Urine Yellow; Glucose Urine UA Negative (Negative); Leukocyte Esterase Urine Negative (Negative); Nitrite Urine Negative (Negative); Specific Gravity - Urine 1.025 (1.005-1.025); Urine Blood Negative (Negative); Urine Ketones Negative (Negative); Urine Protein Negative (Neg-Trace)
[2022-07-23 19:46] LABS: UPreg QC Valid YES; Urine Pregnancy NEGATIVE (NEGATIVE)
[2022-07-23 19:58] LABS: Amphetamine Screen Urine Not Detected (Not Detect); Barbiturates, Urine Not Detected (Not Detect); Benzodiazepines Screen Urine Not Detected (Not Detect); Cannabinoid Screen Urine Not Detected (Not Detect); Cocaine Screen Urine Not Detected (Not Detect); Fentanyl, urine Not Detected (Not Detect); Opiate Screen Urine Not Detected (Not Detect); Phencyclidine Screen Urine Not Detected (Not Detect)
[2022-07-23 20:08] LABS: Alanine Aminotransferase 21 U/L (0-31); Albumin Level 4.3 g/dL (3.5-5.0); Alkaline Phosphatase 91 U/L (39-117); Anion Gap 14 (12-20); Aspartate Amino Transferase 16 U/L (5-31); Bilirubin Direct 0.4 mg/dL (0.0-0.5); Bilirubin Total 1.5 mg/dL (0.0-1.0); Blood Urea Nitrogen 9 mg/dL (9-16); Carbon Dioxide 25 mmol/L (22-29); Chloride 107 mmol/L (96-108); Creatinine Clr Calc Pharmacy 107.1; Estimated Glomerular Filt Rate > 60; Ethanol < 10 mg/dL; Glucose Random 97 mg/dL (60-115); Lipase 15 U/L (8-78); Magnesium 1.7 mg/dL (1.6-2.6); Potassium 4.2 mmol/L (3.3-5.1); Sodium 142 mmol/L (135-145)
[2022-07-23 23:04] VITALS: PULSE 97; O2SAT 98
--- NOTE | 2022-07-23 23:18 | PC.NURSE ---
This RN took over care at 11:11, pt a&o, no sob or chest pain, pt able to speak in full sentence, no sign of distress, Reviewed discharge instructions with p. pt verbalized understanding.
== END 2022-07-23 23:20 | disposition home or self-care (01) ==
PROVIDERS: Physician Assistant; Emergency Provider Internal Medicine
DX: R10.11 Right upper quadrant pain (principal); R11.2 Nausea with vomiting, unspecified; R19.7 Diarrhea, unspecified; R00.0 Tachycardia, unspecified; Z79.899 Other long term (current) drug therapy
CPT/HCPCS: 36415; 76705; 80048; 80076; 80307; 81003; 81025; 83690; 83735; 85025; 85610; 85730; 99283; 99284

== ENCOUNTER 2024-07-22 09:28 | Emergency (ER) | payer SELFPAY ==
--- NOTE | ~2024-07-22 | XR_ITS ---
EXAMINATION: XR CHEST 2 VIEWS HISTORY: cough/fever COMPARISON: Comparison is made with the prior examination dated 02/23/2021. FINDINGS: PA and lateral views of the chest are submitted. The lungs are expanded and clear. There is no pleural effusion, pneumothorax, or pulmonary vascular congestion. The heart is normal in size. The bones are intact. XR/XR chest 2V IMPRESSION: No acute cardiopulmonary abnormality. Electronically signed by: Siva Roth MD 07/22/2024 10:27 AM EDT
[2024-07-22 09:40] VITALS: BP 135/66; PULSE 94; RESP 18; TEMP 36.6; O2SAT 99; BMI 33.5
[2024-07-22 10:19] LABS: MANUAL DIFF FLAG NO
[2024-07-22 10:21] LABS: Basophils Absolute Auto 0.1 X10*3/uL (0.0-0.2); Basophils Percent Auto 0.5 % (0-2); Eosinophils Absolute Auto 0.3 X10*3/uL (0.0-0.4); Eosinophils Percent Auto 3.4 % (0-4); Hematocrit 44.1 % (37.0-47.0); Hemoglobin 14.5 g/dl (12.0-16.0); Imm Gran Abs Auto 0.03 X10*3/uL (0.00-0.03); Imm Gran Pct Auto 0.3 % (0.0-0.4); Lymphocytes Absolute Auto 2.9 X10*3/uL (1.2-4.9); Mean Corpuscular HGB Conc 32.9 g/dl (31.0-35.0); Mean Corpuscular Volume 85.3 fL (80.0-98.0); Mean Platelet Volume 9.8 fL (9.4-12.3); Monocytes Absolute Auto 0.5 X10*3/uL (0.1-1.2); Monocytes Percent Auto 4.9 % (2-11); Neutrophils Absolute Auto 5.5 x10*3/uL (2.0-8.3); Neutrophils Percent Auto 59.9 % (45-73); Platelet Count 313 X10*3/uL (160-400); Red Blood Count 5.17 X10*6/uL (4.20-5.50); Red Cell Distribution Width 12.6 % (11.0-16.0); White Blood Count 9.2 X10*3/uL (4.8-10.8)
[2024-07-22 10:34] LABS: Appearance Urine Clear; Color Urine Yellow; Glucose Urine UA Negative (Negative); Leukocyte Esterase Urine Trace (Negative); Nitrite Urine Negative (Negative); UMIC TRIGGER UACC YES; Urine Blood Negative (Negative); Urine Ketones Negative (Negative); Urine Protein Negative (Neg-Trace)
[2024-07-22 10:37] LABS: Bacteria Urine Trace (None Seen); Hyaline Casts Urine 0-2 /LPF (0-2); RBC Urine 0-2 /HPF (0-2); WBC Urine 0-5 /HPF (0-5)
[2024-07-22 10:39] LABS: UPreg QC Valid YES; Urine Pregnancy NEGATIVE (NEGATIVE)
--- OUTSIDE RECORDS SUMMARY | 2024-07-22 10:39 | XMS_ITS | Encounter Summary ---
Author Organization [facility] Address [address] [place] [address] Care Team Providers Care Marketing Teacher Name Role Phone Rosa Kerr MD Primary Care Provider [phone] Encounter Details Date Type Department Care Team (Late st Contact Info) Description 10/21/2023 Scanned Document [address] [place] [id number] Provider, Generic Social History Tobacco Use Types Packs/Day Years Used Date Smoking Tobacco: Never Smokeless Tobacco: Never Alcohol Use Standard Drinks/Week Comments Never 0 (1 standard drink = 0.6 oz pur e alcohol) AUDIT-C Answer Date Recorded Frequency of Alcohol Consumption Never 01/05/2019 Average Number of Drinks Not on file 019 Frequency of Binge Drinking Not on file 12/15 Comments No Sex and Gender Information Value Date Recorded Sex Assigned at Not on file Legal Sex Female 5:39 PM EDT Gender Identity Not on file Sexual Orientation Not on file documented as of this encounter Plan of Treatment Not on file documented as of this encounter Visit Diagnoses Not on filedocumented in this encounter Care Teams Marketing Teacher Relationship Specialty Start Date End Date Rosa Kerr MD [address] [place] [address] PCP - General Pediatric, General 01/07/22 documented as of this encounter
--- OUTSIDE RECORDS SUMMARY | 2024-07-22 10:39 | XMS_ITS | Encounter Summary ---
Author Organization [facility] Address [address] [place] [address] Care Team Providers Care Aquarium Tank Attendant Name Role Phone Rosa Kerr MD Primary Care Provider [phone] Encounter Details Date Type Department Care Team (Late st Contact Info) Description 10/21/2023 Scanned Document [address] [place] [phone] Provider, Generic Social History Tobacco Use [...] on filedocumented in this encounter Care Teams Aquarium Tank Attendant Relationship Specialty Start Date End Date Rosa Kerr MD [address] [place] [address] PCP - General Pediatric, General 01/07/22 documented as of this encounter
--- OUTSIDE RECORDS SUMMARY | 2024-07-22 10:39 | XMS_ITS | Encounter Summary ---
Author Organization [facility] Address [address] [place] [address] Phone Care Team Providers Care Utility Gelatin Maker Name Role Phone Unavailable Primary Care Provider Unavailabl e Reason for Visit * Reason Comments Medication Refill Encounter Details Date Type Department Care Team ([facility] Contact Info) Description 04/11/2023 [facility] Primary Care [address] [place] [address] Anastacia Balderrama PA [address] [place] [id number] Medication Refill Social History Tobacco Use Types Packs/Day Years Used Date Smoking Tobacco: Never Smokeless Tobacco: Never Alcohol Use Standard Drinks/Week Comments Yes 0 (1 standard drink = 0.6 oz pur e alcohol) social Overall Financial Resource Strain (CARDIA) Answe r Date Recorded How hard is it for you to pa y for the very basics like food, housing, medical care, and heating? Not hard at all 01/26/2023 PHQ-2 Answer Date Recorded PHQ-2 Total Score 0 01/26/2023 Exercise Vital Sign Answer Date Recorde d On average, how many days pe r week do you engage in moderate to strenuous exercise (like a brisk walk)? 0 days 01/26/2023 On average, how many minutes do you engage in exercise at this level? 0 min 01/26/2023 PRAPARE - Transportation Answer Date Re corded In the past 12 months, has l ack of transportation kept you from medical appointments or from getting medications? No 01/14 In the past 12 months, has l ack of transportation kept you from meetings, work, or from getting things needed for daily living? No 01/26/2023 Housing Stability Answer Date Recorded What is your living situation today? I have a [facility] place to live 01/26/2023 Comments No Sex and Gender Information Value Date Recorded Sex Assigned at Female 05/09/2021 9:48 AM EST Legal Sex Female 3:14 PM EDT Gender Identity Female 05/09/2021 9:48 AM EST Sexual Orientation Straight 10/17/2021 2: 00 PM EDT documented as of this encounter Plan of Treatment Not on file documented as of this encounter Visit Diagnoses Diagnosis Vitamin D deficiency Unspecified vitamin D deficiency documented in this encounter Additional Health Concerns Assessment Noted Time PHQ-9 Depression Total Score: 0 01/27/20 23 11:53 AM EST documented as of this encounter
--- OUTSIDE RECORDS SUMMARY | 2024-07-22 10:39 | XMS_ITS | Encounter Summary ---
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 [address] [place], [place] [id number] Cass Amaro MD [address] [place] [phone] Medication Refill Social History Tobacco Use Types Packs/Day Years Used Date Smoking Tobacco: Never Smokeless Tobacco: Never Alcohol Use Standard Drinks/Week Comments Yes 0 (1 standard drink = 0.6 oz pur e alcohol) social PHQ-2 Answer Date Recorded PHQ-2 Total Score 0 05/08/2020 Comments No Sex and Gender Information Value Date Recorded Sex Assigned at Female 05/09/2021 9:48 AM EST Legal Sex Female 3:14 PM EDT Gender Identity Female 05/09/2021 9:48 AM EST Sexual Orientation Straight 10/17/2021 2: 00 PM EDT documented as of this encounter Plan of Treatment Not on file documented as of this encounter Visit Diagnoses Not on filedocumented in this encounter Additional Health Concerns Assessment Noted Time PHQ-9 Depression Total Score: 0 05/08/19 21 3:30 PM EST documented as of this encounter Care Teams Manager Reimbursement Relationship Specialty Start Date End Date Ceferino Andino DDS [address] [place] [phone] PCP - General General Dentistry 04/15/22 08/24/22 documented as of this encounter
--- OUTSIDE RECORDS SUMMARY | 2024-07-22 10:39 | XMS_ITS | Clinical Summary ---
Author Organization [address] Address [address] [place] [address] Care Team Providers Care Staffing Executive Name Role Phone Unavailable Primary Care Provider Unavailabl e Allergies No known active allergies Medications PROAIR HFA 90 mcg/actuation HFA aerosol inhaler every 6 (six) hours as needed. 1 Active metroNIDAZOLE (FLAGYL) 500 mg tablet 2 Active valACYclovir (VALTREX) 1000 mg tablet 2 Active HEALTHYLAX 17 gram packetIndications :Constipation, unspecified constipation type TAKE 1 PACKET BY MOUTH IN 6 TO 8 OZ OF WATER DAILY 90 packet 1 2 Active famotidine (PEPCID) 20 mg tabletIndications :Heartburn TAKE 1 TABLET BY MOUTH EVERY 12 HOURS NEEDED FOR ACID REFLUX 180 tablet 3 Active VITAMIN D2 1,250 mcg (50,000 unit) capsuleIndication s:Vitamin D deficiency TAKE 1 CAPSULE BY MOUTH ONCE A WEEK FOR LOW VITAMIN DAY 12 capsule 3 Active vitamin (VITAFOL-OB) 65-1 mg TabIndications:En counter for infertility counseling Take 1 tablet by mouth daily. 90 tablet 3 4 Active amoxicillin (AMOXIL) 875 mg tabletIndications :Routine general medical examination at a health care facility TAKE 1 TABLET EVERY 12 HOURS DAILY 3 Active ibuprofen (ADVIL,MOTRIN) 600 mg tabletIndications :Routine general medical examination at a health care facility Take 1 tablet (600 mg total) by mouth every 6 (six) hours. 3 Active LIDOCAINE 2 % solutionIndicatio ns:Routine general medical examination at a health care facility 4 Active oxyCODONE-acetami nophen (PERCOCET) 5-325 mg per tabletIndications :Routine general medical examination at a health care facility TAKE 1 TABLET EVERY 4 TO 6 HOURS NEEDED FOR PAIN 3 Active medroxyPROGESTERo ne (PROVERA) 10 mg tabletIndications :Amenorrhea Take 1 tablet (10 mg total) by mouth daily. 5 tablet 5 4 Active VITAFOL-ONE capsule take 1 capsule by mouth once daily 90 capsule 4 Active Active Problems Problem Noted Date Diagnosed Date Nonspecific finding on examination of urine 06/2021 Lower abdominal pain 10/17/2021 High risk heterosexual behavior 10/17/2021 Vaginal discharge 10/17/2021 Second degree burn of fourth finger of right landrum d 08/09/2014 Immunizations Name Administration Dates Next Due COVID-19 Vaccine - PFIZER 12/20/2020,11/14/2020 DTaP 07/28/2006, 5,01/31/2003,11/29,2002 HPV, quadrivalent 06/07/2014,08/25/2013,12/17/19 13 Hep B, adolescent or pediatric 01/31/2009,2002,2002 Hib, unspecified formulation 04/23/2004,11/30/19 03,2002 Influenza, injectable, quadr ivalent, preservative free 03/25/2022 MMR 07/28/2006,04/23/2004 Meningococcal B, OMV (Bexsero) 02/13/2020 Meningococcal MCV4P - Menactra 02/13/2020,2013 Pneumococcal conjugate PCV 13 07/10/2005, 005,01/31/2003 Polio (IPV) 07/28/2006, 3,2002,09/22 Tdap 08/25/2013 Varicella, live 04/22/2011,07/10/2005 Family History Medical History Relation Name Comments Asthma Mother Diabetes Mother Cancer Other Hypertension Other Relation Name Status Comments Mother Alive Other Social History Tobacco Use Types Packs/Day Years Used Date Smoking Tobacco: Never Smokeless Tobacco: Never Tobacco Cessation:Counseling Given: Not Answered Alcohol Use Standard Drinks/Week Comments Yes 0 (1 standard drink = 0.6 oz pur e alcohol) social Overall Financial Resource Strain (CARDIA) Answe r Date Recorded How hard is it for you to pa y for the very basics like food, housing, medical care, and heating? Not very hard 06/02/2023 PHQ-2 Answer Date Recorded PHQ-2 Total Score 0 04/23/2023 Exercise Vital Sign Answer Date Recorde d On average, how many days pe r week do you engage in moderate to strenuous exercise (like a brisk walk)? 0 days 06/02/2023 On average, how many minutes do you engage in exercise at this level? 0 min 06/02/2023 PRAPARE - Transportation Answer Date Re corded In the past 12 months, has l ack of transportation kept you from medical appointments or from getting medications? No 05/14 In the past 12 months, has l ack of transportation kept you from meetings, work, or from getting things needed for daily living? No 06/02/2023 Housing Stability Answer Date Recorded What is your living situation today? I have a [facility] place to live 06/02/2023 Housing Stability Not on file 06/02/2023 Comments No Sex and Gender Information Value Date Recorded Sex Assigned at Female 05/09/2021 9:48 AM EST Legal Sex Female 3:14 PM EDT Gender Identity Female 05/09/2021 9:48 AM EST Sexual Orientation Straight 10/17/2021 2: 00 PM EDT Last Filed Vital Signs Vital Sign Reading Time Taken Comments Blood Pressure 106/60 06/02/2023 11:25 AM EDT Pulse 90 06/02/2023 11:25 AM EDT Temperature 36.7 ??C (98.1 ??F) 06/02/2023 11:25 AM E DT Respiratory Rate 18 06/02/2023 11:25 AM EDT Oxygen Saturation 100% 06/02/2023 11:25 AM EDT Inhaled Oxygen Concentration - - Weight 85.1 kg (187 lb 9.6 oz) 06/02/2023 11:25 AM EDT Height 152.4 cm (5') 06/02/2023 11:25 AM EDT Body Mass Index 36.64 06/02/2023 11:25 AM EDT Plan of Treatment Health Maintenance Due Date Last Done Comments Dental Oral Exam 2002 Dental X-Ray: Bitewings 2002 Dental X-Ray: Full Mouth 2002 Dental Prophylaxis 04/20/2022 10/17/2021 Cervical cancer screening 07/10/2023 DTaP/TDaP Vaccines (7 - Td or Tdap) 08/26/2023 08/25/2013, 07/28/2006, 04/23/2004, Additional history exists Tetanus adult (Td q 10,TDAP once) 08/26/2023 08/25/2013, 07/28/2006, 04/23/2004, Additional history exists Covid-19 vaccine series ( season) 2023 12/20/2020, 11/14/2020 Chlamydia screening 06/01/2024 06/02/2023, 04/23/2023, 01/26/2023, Additional history exists Influenza vaccine 11/14/2024 03/25/2022 RSV Immunization (1 - 1-dose 75+ series) 2077 HIB Vaccines Completed 04/23/2004, 11/14, 2002 Pneumococcal Vaccine (2 - 49 years) Completed 07/10/2005, 05/02/2004, 01/31/2003 IPV Vaccines Completed 07/28/2006, 01/14, 2002, Additional history exists MMR Vaccines Completed 07/28/2006, 04/23/2004 Hepatitis B vaccine series Completed 01/31, 2002, 2002 Varicella Vaccines Completed 04/22/2011, 07/10/2005 HPV vaccine series Completed 06/07/2014, 0 08/25/2013, 12/16/2012 Meningococcal Vaccine Completed 02/13/2020, 014 HIV screening Completed 06/02/2023, 08/15, 04/10/2022, Additional history exists Hepatitis C screening Completed 06/02/2023 , 09/04/2022, 04/10/2022 Hepatitis A Vaccines Aged Out No long er eligible based on patient's age to complete this topic Rotavirus Vaccines Aged Out No longer eligible based on patient's age to complete this topic Procedures Procedure Name Priority Date/Time Associated Diagnosis Comments HIV 1/2 AG/AB, W/REFLEXES (Q) Routine 06/02/2023 11:53 AM EDT Routine general medical examination at a health care facility Routine screening for STI (sexually transmitted infection) C. TRACHOMATIS/N. GONORRHOEAE RNA BY TMA (Q) Routine 06/02/2023 11:53 AM EDT Routine general medical examination at a health care facility Routine screening for STI (sexually transmitted infection) HEPATITIS C AB WITH REFLEX TO HCV PCR Routine 06/02/2023 11:53 AM EDT Routine general medical examination at a health care facility Routine screening for STI (sexually transmitted infection) UT PROPHYLAXIS - ADULT Routine 10/17/2021 1:00 PM EDT Encounter for dental examination from Last 3 Months or Most Recently Relevant to Health Maintenance Results * HIV 1/2 ag/ab, w/reflexes (Q) (06/02/2023 11:53 AM EDT) HIV Ag/Ab, 4th Generation NON-REACT JULIET NON-REACT JULIET [facility] Comment: HIV-1 antigen and HIV-1/HIV-2 antibodies were not detected. There is no laboratory evidence of HIV infection. PLEASE NOTE: This information has been disclosed to you from records whose confidentiality may be protected by state law. ??If your state requires such protection, then the state law prohibits you from making any further disclosure of the information without the specific written consent of the person to whom it pertains, or as otherwise permitted by law. A general authorization for the release of medical or other information is NOT sufficient for this purpose. ?? For additional information please refer to http://education.[employer]/faq/ZXA741 (This link is being provided for informational/ educational purposes only.) The performance of this assay has not been clinically validated in patients less than 2 years old. Blood 06/02/2023 11:5 3 AM EDT 06/02/2023 11:54 AM EDT Narrative [facility] - 06/07/2023 2:41 PM EDT FASTING:YES FASTING: YES Resulting Agency Comment Performing Lab: ?Site ID: [id number] ?Name: [facility] ?Address: [address] [place] [phone] ?Director: Bob Kiran M.D. Deb Maradiaga NP LAB BLOOD ORDERABLES Final Re sult Performing Organization Address [facility] de Phone Number [facility] [address] [place] [address] * C. trachomatis/N. gonorrhoeae RNA by TMA, (Q) (06/02/2023 11:53 AM EDT) C. trachomatis RNA, TMA NOT DETECTED NOT DETECTED [facility] Neisseria gonorrhoeae RNA, TMA NOT DETECTED NOT DETECTED [facility] Comment [facility] Comment: The analytical performance characteristics of this assay, when used to test SurePath(TM) specimens have been determined by [facility]. The modifications have not been cleared or approved by the FDA. This assay has been validated pursuant to the CLIA regulations and is used for clinical purposes. For additional information, please refer to https://education.[employer]/faq/VPN581 (This link is being provided for information/ educational purposes only.) Culture URINE SPECIMEN OBTAINED BY CLEAN CATCH PROCEDURE / Unknown 06/02/2023 11:53 AM EDT 06/02/2023 11:54 AM EDT Narrative [facility] - 06/07/2023 2:41 PM EDT FASTING:YES FASTING: YES Resulting Agency Comment Performing Lab: ?Site ID: [id number] ?Name: [facility] ?Address: [address] [place] [phone] ?Director: Bob Kiran M.D. Deb Maradiaga NP MICROBIOLOGY - GENERAL ORDERA BLES Final Result Performing Organization Address [facility]/State/ZIP Co de Phone Number [facility] [address] * Hepatitis C Ab with reflex to HCV PCR (06/02/2023 11:53 AM EDT) Hepatitis C Ab NON-REACT JULIET NON-REACT JULIET [facility] Comment: HCV antibody was non-reactive. There is no laboratory evidence of HCV infection. In most cases, no further action is required. However, if recent HCV exposure is suspected, a test for HCV RNA (test code 94127) is suggested. For additional information please refer to http://education.[employer]/faq/LKC60r0 (This link is being provided for informational/ educational purposes only.) Blood 06/02/2023 11:5 3 AM EDT 06/02/2023 11:54 AM EDT [facility] - 06/07/2023 2:41 PM EDT FASTING:YES FASTING: YES Resulting Agency Comment Performing Lab: ?Site ID: [id number] ?Name: [facility] ?Address: [address] [place] [phone] ?Director: Bob Kiran M.D. Deb Maradiaga NP LAB BLOOD ORDERABLES Final Re sult [facility] [address] [place] [address] from Last 3 Months or Most Recently Relevant to Health Maintenance Insurance [place] [address] [place] [address] [place] [address] [place] [address] [place] [address] [place] [address] [place]
--- OUTSIDE RECORDS SUMMARY | 2024-07-22 10:39 | XMS_ITS | Encounter Summary ---
Author Organization [facility] Address [address] [place] [address] Phone Care Team Providers Care Content Architect Name Role Phone Unavailable Primary Care Provider Unavailabl e Reason for Visit * Reason Comments Medication Refill Encounter Details Date Type Department Care Team ([facility] Contact Info) Description [facility] [address] [place] [address] Anastacia Balderrama PA [address] [place] [phone] Medication Refill Social History Tobacco Use [...] your living situation today? I [facility] a [facility] place to live 01/26/2023 Comments No Sex and Gender Information Value Date Recorded Sex Assigned at Female 05/09/2021 9:48 AM EST Legal Sex Female 3:14 PM EDT Gender Identity Female 05/09/2021 9:48 AM EST Sexual Orientation Straight 10/17/2021 2: 00 PM EDT documented as of this encounter Plan of Treatment Not on file documented as of this encounter Visit Diagnoses Diagnosis Heartburn documented in this encounter Additional Health Concerns Assessment Noted Time PHQ-9 Depression Total Score: 0 01/27/20 23 11:53 AM EST documented as of this encounter
--- OUTSIDE RECORDS SUMMARY | 2024-07-22 10:39 | XMS_ITS | Encounter Summary ---
Author Organization [facility] Address [address] [place] [address] Phone Care Team Providers Care Non Food Receiving Clerk Name Role Phone Ceferino Andino DDS Primary Care Provider [phone] Reason for Visit * Reason Comments Medication Refill Encounter Details Date Type Department Care Team (Late st Contact Info) Description 01/08/2022 [facility] Primary [facility] [address] [place] [address] Anastacia Balderrama PA [address] [place] [phone] Medication Refill Social History Tobacco Use [...] as of this encounter Visit Diagnoses Diagnosis Heartburn- Primary documented in this encounter Additional Health Concerns Assessment Noted Time PHQ-9 Depression Total Score: 0 05/08/19 21 3:30 PM EST documented as of this encounter Care Teams Non Food Receiving Clerk Relationship Specialty Start Date End Date Ceferino Andino DDS [address] [place] [address] PCP - General General Dentistry 04/15/22 08/24/22 documented as of this encounter
--- OUTSIDE RECORDS SUMMARY | 2024-07-22 10:39 | XMS_ITS | Encounter Summary ---
Author Organization [facility] Address [address] [place] [address] Phone Care Team Providers Care Supervisor Coil Winding Name Role Phone Unavailable Primary Care Provider Unavailabl e Reason for Visit * Reason Comments Medication Refill Encounter Details Date Type Department Care Team ([facility] Contact Info) Description [facility] [address] [place] [address] Anastacia Balderrama PA [address] [place] [phone] Medication Refill Social History Tobacco Use [...] your living situation today? I have a [facility] place to live 01/26/2023 Comments No [...]
--- OUTSIDE RECORDS SUMMARY | 2024-07-22 10:39 | XMS_ITS | Encounter Summary ---
Author Organization [facility] Address [address] [place] [address] Phone Care Team Providers Care Charm Filter Operator Helper Name Role Phone Ceferino Andino DDS Primary Care Provider Reason for Visit * Reason Comments Medication Refill Encounter Details Date Type Department Care Team (Late st Contact Info) Description 12/29/2021 [facility] [address] [place] [address] Anastacia Balderrama PA [address] [place] [phone] Medication Refill Social History Tobacco Use [...] this encounter Visit Diagnoses Diagnosis Vitamin D deficiency- Primary Unspecified vitamin D deficiency documented in this encounter Additional Health Concerns Assessment Noted Time PHQ-9 Depression Total Score: 0 05/08/19 21 3:30 PM EST documented as of this encounter Care Teams Charm Filter Operator Helper Relationship Specialty Start Date End Date Ceferino Andino DDS [address] [place] [phone] PCP - General General Dentistry 04/15/22 08/24/22 documented as of this encounter
--- OUTSIDE RECORDS SUMMARY | 2024-07-22 10:39 | XMS_ITS | Clinical Summary ---
Author Organization [facility] Address [address] [place] [address] Care Team Providers Care Bag Repairer Name Role Phone Rosa Kerr MD Primary Care Provider [phone] Allergies No known active allergies Medications No known medications Active Problems No known active problems Encounters Date Type Department Care Team Description 07/19/2024 Travel from Last 3 Months Social History Tobacco Use Types Packs/Day Years Used Date Smoking Tobacco: Never Smokeless Tobacco: Never Tobacco Cessation:Counseling Given: Not Answered Alcohol Use Standard Drinks/Week Comments Never 0 [...] on file Sexual Orientation Not on file Last Filed Vital Signs Vital Sign Reading Time Taken Comments Blood Pressure 121/80 01/18/2024 12:39 PM EST Pulse 101 01/18/2024 12:39 PM EST Temperature 36.2 ??C (97.1 ??F) 01/18/2024 12:[address] Respiratory Rate 20 01/05/2019 5:53 PM EDT Oxygen Saturation 98% 01/18/2024 12:39 PM EST Inhaled Oxygen Concentration - - Weight 74.8 kg (165 lb) 08/04/2021 11:54 AM EDT Height 149.9 cm (4' 11 ) 01/07/2022 6:20 PM EDT Body Mass Index 33.26 08/04/2021 11:54 AM EDT Plan of Treatment Health Maintenance Due Date Last Done Comments HPV Vaccines (1 - 3-dose series) 2017 DTaP/Tdap/Td Vaccines (1 - Tdap) 2021 Hepatitis B Vaccines (1 of 3 - 19+ 3-dose series) 2021 Pap Smear (Ages 21-65) 07/10/2023 COVID-19 Vaccine (3 - 2023- season) 2023 12/20/2020, 11/14/2020 Influenza Vaccine 10/14/2024 03/25/2022 HIV Screening Completed 08/04/2021 Hepatitis C Virus Screening Completed 08/04/2021 Influenza Vaccine Discontinued 03/25/2022 Pneumococcal Vaccine: Pediatric (0-5 Years) and At-Risk Patients (6 to 49 Years) Aged Out No longer eligible b ased on patient's age to complete this topic Procedures Procedure Name Priority Date/Time Associated Diagnosis Comments HIV 1/2 AG/AB CMIA REFLEX TO CONFIRMATION Routine 08/04/2021 12:53 PM EDT Exposure to sexually transmitted disease (STD) HEPATITIS C VIRUS (HCV) ANTIBODY Routine 08/04/2021 12:53 PM EDT Exposure to sexually transmitted disease (STD) from Last 3 Months or Most Recently Relevant to Health Maintenance Results * HIV 1/2 Ag/Ab CMIA Reflex to Confirmation (08/04/2021 12:53 PM EDT) HIV Ag/Ab, 4th Gen NON-REACT JULIET NON-REACT JULIET [facility] Comment: HIV-1 antigen and HIV-1/HIV-2 antibodies were [...] ?? For additional information please refer to http://education.[employer]/faq/SKH951 (This link is being provided for informational/ educational purposes only.) The performance of this assay has not been clinically validated in patients less than 2 years old. Blood specimen (specimen) Blood specimen / Unknown 08/04/2021 12:53 PM EDT 08/05/2021 2:10 AM EDT [facility] LAB BLOOD ORDERABLES Final Resul t Performing Organization Address City/[facility]/ZIP Co de Phone Number [facility] [address], [facility] [place] [address] * Hepatitis C Virus (HCV) Antibody (08/04/2021 12:53 PM EDT) Hepatitis C Antibody NON-REACT JULIET NON-REACT JULIET [facility] Hepatitis C Antibody (s/co) 0.02 <1.00 [facility] Comment: HCV antibody was non-reactive. There is no laboratory evidence of HCV infection. In most cases, no further action is required. However, if recent HCV exposure is suspected, a test for HCV RNA (test code 44917) is suggested. For additional information please refer to http://education.[employer]/faq/YOM50p8 (This link is being provided for informational/ educational purposes only.) Blood specimen (specimen) Blood specimen / Unknown 08/04/2021 12:53 PM EDT 08/05/2021 2:10 AM EDT [facility] LAB BLOOD ORDERABLES Final Resul t Performing Organization Address City/[facility] Co de Phone Number [facility] [address] [place] [address], [facility] [place] [address] from Last 3 Months or Most Recently Relevant to Health Maintenance Care Teams Bag Repairer Relationship Specialty Start Date End Date Rosa Kerr MD [address] [place] [address] PCP - General Pediatric, General 01/07/22
--- OUTSIDE RECORDS SUMMARY | 2024-07-22 10:39 | XMS_ITS | Encounter Summary ---
Author Organization [facility] Address [address] [place] [address] Care Team Providers Care Health And Nutrition Specialist Name Role Phone Rosa Kerr MD Primary Care Provider [phone] Encounter Details Date Type Department Care Team (Latest Contact Info) Description 07/19/2024 Travel Social History Tobacco Use Types Packs/Day Years [...] on filedocumented in this encounter Care Teams Health And Nutrition Specialist Relationship Specialty Start Date End Date Rosa Kerr MD [address] [place] [address] PCP - General Pediatric, General 01/07/22 documented as of this encounter
--- OUTSIDE RECORDS SUMMARY | 2024-07-22 10:39 | XMS_ITS | Encounter Summary ---
Author Organization [facility] [employer] and [facility] Address [address] [place] [id number] Care Team Providers Care Bell Attendant Name Role Phone Ceferino Andino DDS Primary Care Provider [phone] Encounter Details Date Type Department Care Team (Latest Contact Info) Description 06/27/2021 Transcribed Orders [facility] [place] [phone] Cass Amaro MD [address] [place] [phone] Bilateral ovarian cysts (Primary Dx); Benign neoplasm of ovary Social History Tobacco Use Types Packs/Day Years Used Date Smoking Tobacco: Never Smokeless Tobacco: Never Alcohol Use Standard Drinks/Week Comments No 0 (1 standard drink = 0.6 oz pur e alcohol) PHQ-2 Answer Date Recorded PHQ-2 Total Score 0 05/08/2020 Comments Unknown Sex and Gender Information Value Date Recorded Sex Assigned at Female 05/09/2021 9:48 AM EST Legal Sex Female 3:14 PM EDT Gender Identity Female 05/09/2021 9:48 AM EST Sexual Orientation Straight 10/17/2021 2: 00 PM EDT documented as of this encounter Plan of Treatment Not on file documented as of this encounter Procedures Procedure Name Priority Date/Time Associated Diagnosis Comments PT/INR AND PTT ([facility]) Routine 06/27/2021 1:05 PM EDT Bilateral ovarian cysts Benign neoplasm of ovary CBC WITH AUTO DIFFERENTIAL Routine 06/27/2021 1:05 PM EDT Bilateral ovarian cysts Benign neoplasm of ovary CBC AND DIFFERENTIAL Routine 06/27/2021 1:05 PM EDT Bilateral ovarian cysts Benign neoplasm of ovary TYPE AND SCREEN ([facility]) Routine 06/27/2021 1:05 PM EDT Bilateral ovarian cysts Benign neoplasm of ovary documented in this encounter Results * CBC auto differential (06/27/2021 1:05 PM EDT) WBC 8.9 4.0 - 11.0 x1000/??L 06/27/2021 2:22 PM [facility] RBC 4.80 4.00 - 6.00 M/??L 06/27/2021 2:22 PM [facility] Hemoglobin 13.1 11.7 - 15.5 g/dL 06/27/2021 2:22 PM [facility] Hematocrit 41.00 35.00 - 45.00 % 06/27/2021 2:22 PM [facility] MCV 85.4 80.0 - 100.0 fL 06/27/2021 2:22 PM [facility] MCH 27.3 27.0 - 33.0 pg 06/27/2021 2:22 PM [facility] MCHC 32.0 31.0 - 36.0 g/dL 06/27/2021 2:22 PM [facility] RDW-CV 13.0 11.0 - 15.0 % 06/27/2021 2:22 PM [facility] Platelets 333 150 - 420 x1000/??L 06/27/2021 2:22 PM [facility] MPV 9.9 8.0 - 12.0 fL 06/27/2021 2:22 PM [facility] Neutrophils 58.0 39.0 - 72.0 % 06/27/2021 2:22 PM [facility] Lymphocytes 34.4 17.0 - 50.0 % 06/27/2021 2:22 PM EDT [facility] Monocytes 4.7 4.0 - 12.0 % [facility] Eosinophils 2.1 0.0 - 5.0 % 06[facility] Basophil 0.4 0.0 - 1.4 % 06/27/2021 2:22 PM EDT [facility] Immature Granulocytes 0.4 0.0 - 1.0 % 06/27/2021 2:22 PM EDT [facility] nRBC 0.0 0.0 - 1.0 % 06/27/2021 2:22 PM T [facility] ANC(Abs Neutrophil Count) 5.15 2.00 - 7.60 x 1000/??L 06/27/2021 2:22 PM [facility] Absolute Lymphocyte Count 3.06 0.60 - 3.70 x 1000/??L 06/27/2021 2:22 PM [facility] Monocyte Absolute Count 0.42 0.00 - 1.00 x 1000/??L 06/27/2021 2:22 PM [facility] Eosinophil Absolute Count 0.19 0.00 - 1.00 x 1000/??L 06/27/2021 2:22 PM [facility] Basophil Absolute Count 0.04 0.00 - 1.00 x 1000/??L 06/27/2021 2:22 PM [facility] Absolute Immature Granulocyte Count 0.04 0.00 - 0.30 x 1000/??L 06/27/2021 2:22 PM [facility] Absolute nRBC 0.00 0.00 - 1.00 x 1000/??L 06/27/2021 2:22 PM [facility] Blood Venipuncture / Unknown 06/27/2021 1:05 PM EDT 06/27/2021 2:08 PM EDT us Csas Amaro MD LAB BLOOD ORDERABLE S Final Result [address] [phone] * Type and screen Is this a pre-operative order? Yes (06/27/2021 1:05 PM EDT) ABO Grouping O 06/27/2021 3:37 PM EDT [facility] Rh Type POS 06/27/2021 3:37 PM EDT [facility] Antibody Screen NEG 3:37 PM EDT [facility] Blood Venipuncture / Unknown 06/27/2021 1:05 PM EDT 06/27/2021 2:12 PM EDT Narrative BLOOD BANK LAB - 06/27/2021 3:37 PM EDT HIS: Has the patient been transfused in the past 3 HIS: months?->Unknown (specimen will 72 hours from date of HIS: collection) HIS: Has the patient been in the past 3 months?->Unknown HIS: (specimen will 72 hours from date of collection) HIS: Is this a pre-operative order?->Yes HIS: Which facility will the patient be receiving services HIS: from?->[facility] us Cass Amaro MD BLOOD BANK TEST ORD ERABLES Final Result [facility]ANK LAB [address] [place] [address] * PT/INR and PTT ( [facility]) (06/27/2021 1:05 PM EDT) Prothrombin Time 10.2 9.5 - 12.1 seconds 06/27/2021 2:31 PM EDT [facility] INR 0.96 0.87 - 1.13 06/27/2021 2:31 PM EDT [facility] PTT 26.3 23.0 - 32.1 seconds 06/27/2021 2:31 PM EDT [facility] Comment:THERAPEUTIC RANGE: 4 0-80 seconds Blood Venipuncture / Unknown 06/27/2021 1:05 PM EDT 06/27/2021 2:08 PM EDT Cass Amaro MD LAB BLOOD ORDERABLE [place] [address], [facility] [phone] documented in this encounter Visit Diagnoses Diagnosis Bilateral ovarian cysts- Primary Other and unspecified ovarian cyst Benign neoplasm of ovary documented in this encounter Additional Health Concerns Assessment Noted Time PHQ-9 Depression Total Score: 0 05/08/19 21 3:30 PM EST documented as of this encounter Care Teams Bell Attendant Relationship Specialty Start Date End Date Ceferino Andino DDS [address] [place] [phone] PCP - General General Dentistry 04/15/22 08/24/22 documented as of this encounter
--- NOTE | 2024-07-22 10:46 | MHC.EDTECH ---
discussed with Md Bennett, if i can hold on the repeat lab till Md asses the patient due to her stating she a difficult blood draw. Md agree he will notified me if he adds more lab work or not.
[2024-07-22 10:58] LABS: Influenza A PCR NEGATIVE (Negative); Influenza B PCR NEGATIVE (Negative); Resp Syncy Virus RNA Qual PCR NEGATIVE (Negative); SARS COV2 PCR INHOUSE NEGATIVE (Negative)
[2024-07-22 11:07] VITALS: BP 127/85; PULSE 82; RESP 18; O2SAT 100
--- NOTE | 2024-07-22 11:14 | PC.NURSE ---
Report received. Taken over care at this time.
[2024-07-22] MEDS: guaiFEN/Codeine SF 200/20/10ML 10 ML LIQUID PO (11:31)
[2024-07-22 11:32] LABS: Alanine Aminotransferase 15 U/L (0-31); Albumin Level 4.6 g/dL (3.5-5.0); Alkaline Phosphatase 103 U/L (39-117); Anion Gap 11 (12-20); Aspartate Amino Transferase 21 U/L (5-31); Bilirubin Total 0.5 mg/dL (0.0-1.0); Blood Urea Nitrogen 9 mg/dL (9-16); Calcium 9.5 mg/dL (8.4-10.2); Carbon Dioxide 24 mmol/L (22-29); Chloride 105 mmol/L (96-108); Estimated Glomerular Filt Rate > 60; Glucose Random 94 mg/dL (60-115); Lipase 17 U/L (8-78); Potassium 4.3 mmol/L (3.3-5.1); Sodium 136 mmol/L (135-145); Total Protein 7.7 g/dL (6.5-8.0)
[2024-07-22 11:35] LABS: IDNOW Serial# 58CA691E; Strep A Nucleic Acid Negative (Negative)
[2024-07-22] MEDS: 0.9 % Sodium Chloride 1,000 ML 999 ML IV (11:48)
--- NOTE | 2024-07-22 12:03 | ED.GENADULT ---
HPI - General Adult General Chief complaint: Abdominal Pain Stated complaint: Lower Abd Pain, Chest Pain, Trouble Breathing Time Seen by Provider: 07/22/24 10:01 Source: patient Mode of arrival: ambulatory Limitations: no limitations History of Present Illness ED Provider: Donald Jiménez HPI narrative: 24-year-old female with past medical history of PCOS presents to ED for coughing, fever, chills, abdominal, and diarrhea. Patient is having symptoms 5 days 4 days. 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 Patient denies any new antibiotics, recent long travel or recent surgery. Patient denies any recent hospital admission. Patient states diarrhea is green. Patient denies any chest pain or shortness of breath Related Data Previous Rx's ?Medication ?Instructions ?Recorded ondansetron HCl 4 mg tablet 4 mg PO Q8H PRN nausea and 11/20/20 (Zofran) vomiting #10 tabs cephalexin 500 mg capsule 500 mg PO QID 10 days #40 caps 07/18/21 doxycycline hyclate 100 mg tablet 100 mg PO BID #20 tabs 07/18/21 cyclobenzaprine 10 mg tablet 10 mg PO BEDTIME PRN muscle spasm 04/14/22 7 days #7 tabs ibuprofen 400 mg tablet 400 mg PO Q6H PRN pain 7 days #28 04/14/22 tabs prednisone 20 mg tablet 40 mg (2 x 20 mg) PO DAILY 5 days 04/14/22 #10 tabs omeprazole 20 mg tablet,delayed 20 mg PO DAILY #14 tabs 07/23/22 release ondansetron 4 mg disintegrating 4 mg PO Q8H PRN nausea and 07/23/22 tablet vomiting #20 tabs albuterol sulfate 90 mcg/actuation 2 puff inhalation Q4-6H PRN 07/22/24 aerosol inhaler shortness of breath or wheezing #8.5 grams azithromycin 250 mg tablet See Rx Instructions PO .COMPLEX #6 07/22/24 tabs hydrocodone-homatropine 5 mg-1.5 5 ml PO Q4-6H PRN cough 3 days #90 07/22/24 mg/5 mL oral solution (Hycodan mL (with homatropine)) Allergies Allergy/AdvReac Type Severity Reaction Status Date / Time No Known Allergies Allergy Verified 07/22/24 09:42 Review of Systems Review of Systems: fever cough abdominal pain diarrhea Yes all other systems are reviewed and are negative [facility] Social History Social History Alcohol intake: never Smoked in Last 30 Days: No Use of substances other than those prescribed or required for medical reasons: Yes Substance Use Type: Marijuana Advance Directives: No Advance Directives Information Provided: Yes Physical Exam ED Vital Signs: Vital Signs - 24 hr 07/22/24 09:40 07/22/24 11:07 Temperature 97.9 F Pulse Rate 94 82 Respiratory Rate 18 18 Blood Pressure 135/66 127/85 Pulse Oximetry 99 100 Oxygen Delivery Method Room Air Room Air BMI result Body Mass Index 33.5 Const General: cooperative, healthy appearing, comfortable, no acute distress, well developed, alert, awake and Physically active Orientation/consciousness: patient oriented x3 HENMT Head: Yes normal to inspection, Yes No palpable skull fracture present, Yes normocephalic and Yes atraumatic Ears: hearing grossly normal bilaterally, external ears normal, TM's normal bilaterally, TM normal on the right, TM normal on the left, EAC's normal, mastoids normal and no periauricular adenopathy Throat: Yes posterior oropharynx normal, Yes tonsils normal ( surgically removed) and Yes uvula midline Eyes General: appearance normal, both eyes and all related structures Neck Neck: Yes normal visual inspection, Yes full ROM, Yes no lymphadenopathy, Yes no meningeal signs, Yes trachea midline, Yes supple, No anterior neck swelling and No tender Chest Chest palpation & inspection: normal inspection of the chest and normal palpation of entire chest wall Resp Effort & Inspection: normal respiratory effort and able to speak in complete sentences Auscultation: clear to auscultation bilaterally Cardio Jugular venous distension: no JVD Heart sounds: S1 normal heart sound present and S2 normal heart sound present GI Inspection: Yes normal to inspection Palpation (GI): Soft to palpation, not firm, nontender, no guarding and not rigid General: Yes no CVA tenderness Back/Spine/Pelvis Back: no CVA tenderness and No back tenderness Skin General skin exam: no rashes or lesions noted, elasticity normal and turgor normal Neuro General: patient oriented x3, gait normal, tone normal, moves all extremities, Normal light touch and pain sensation, no meningeal signs, no focal motor deficits, CN's II-XI intact bilaterally and normal sensation to monofilament Extrem General: Yes normal to inspection, Yes full ROM and Yes capillary refill normal Psych Appearance: grossly normal, well kempt and not disheveled Medications Administered Discontinued Medications Generic Name Dose Route Start Last Admin Trade Name Ora PRN Reason Stop Dose Admin Guaifenesin/Codeine Phosphate 10 ml 07/22/24 10:58 07/22/24 11:31 Guaifen/Codeine Sf 200/20/10ml 10 Ml Liquid PO 07/22/24 10:59 10 ml ONCE STA Administration Sodium Chloride 1,000 mls @ 999 mls/hr 07/22/24 11:21 07/22/24 12:45 Ns IV 07/22/24 12:21 Infused .Q1H1M STA Infusion Medical Decision Making Medical Decision Making [facility] Narrative: 24-year-old female with past medical history of PCOS presents to ED for fever, coughing, lower abdominal pain multiple episodes of diarrhea. Visual labs are normal. Chest x-ray negative pneumonia. SARs strep negative. Patient will have fluids ordered given Robitussin cough medication with codeine due to profuse coughing.. I believe it is more viral induced URI abdominal pain diarrhea will re-evaluate. 12:46pm: Abdominal exam still significant for lower abdominal tenderness on palpation. Was sent for abdominal CT scan chief for colitis and chest CT for pneumonia. 2:01pm: Patient refusing chest CT and abdominal CT scan. Patient does not want to wait for the results. Patient explained worrisome signs including and she states she is still willing to sign out against medical advice. Told she will be treated with albuterol inhaler, antibiotics and coughing medication. Patient explained worrisome signs and informed to return to the ED immediately Differential Diagnosis Differential Diagnoses: The differential diagnosis associated with the presentation includes ( URI, strep, pneumonia, colitis) Admission/Observation Consideration of admission/observation: Escalation of care including admission/observation considered Lab Data [facility] Lab Attestation statement: I reviewed the patient's lab results. 07/22/24 10:12 07/22/24 11:04 Labs: Lab Results 07/22/24 07/22/24 07/22/24 Range/Units 10:12 10:22 11:04 WBC 9.2 (4.8-10.8) X10*3/uL RBC 5.17 (4.20-5.50) X10*6/uL Hgb 14.5 (12.0-16.0) g/dl Hct 44.1 (37.0-47.0) % MCV 85.3 (80.0-98.0) fL MCH 28.0 (27.0-33.0) pg MCHC 32.9 (31.0-35.0) g/dl RDW 12.6 (11.0-16.0) % Plt Count 313 (160-400) X10*3/uL MPV 9.8 (9.4-12.3) fL Immature Gran % (Auto) 0.3 (0.0-0.4) % Neut % (Auto) 59.9 (45-73) % Lymph % (Auto) 31.0 (20-40) % [place] % (Auto) 4.9 (2-11) % Eos % (Auto) 3.4 (0-4) % Baso % (Auto) 0.5 (0-2) % Lymph # (Auto) 2.9 (1.2-4.9) X10*3/uL [place] # (Auto) 0.5 (0.1-1.2) X10*3/uL Eos # (Auto) 0.3 (0.0-0.4) X10*3/uL Baso # (Auto) 0.1 (0.0-0.2) X10*3/uL Abs Immat Gran (auto) 0.03 (0.00-0.03) X10*3/uL Absolute Neuts (auto) 5.5 (2.0-8.3) x10*3/uL Absolute Nucleated RBC 0.000 (0.0-0.012) X10*3/uL Nucleated RBC % (auto) 0.0 (0.0-0.2) /100WBC Sodium 136 (135-145) mmol/L Potassium 4.3 (3.3-5.1) mmol/L Chloride 105 (96-108) mmol/L Carbon Dioxide 24 (22-29) mmol/L Anion Gap 11 L (12-20) BUN 9 (9-16) mg/dL Creatinine 0.78 (0.5-1.4) mg/dL Estim Creat Clear Calc 100.0 Estimated GFR > 60 Random Glucose 94 (60-115) mg/dL Calcium 9.5 (8.4-10.2) mg/dL Total Bilirubin 0.5 (0.0-1.0) mg/dL AST 21 (5-31) U/L ALT 15 (0-31) U/L Alkaline Phosphatase 103 (39-117) U/L Total Protein 7.7 (6.5-8.0) g/dL Albumin 4.6 (3.5-5.0) g/dL Lipase 17 (8-78) U/L Urine Color Yellow Urine Appearance Clear Urine pH 6.0 (5.0-9.0) Ur Specific [place] 1.020 (1.005-1.025) Urine Protein Negative (Neg-Trace) mg/dL Urine Glucose (UA) Negative (Negative) mg/dL Urine Ketones Negative (Negative) mg/dL Urine Blood Negative (Negative) Urine Nitrite Negative (Negative) Ur Leukocyte Esterase Trace H (Negative) Urine RBC 0-2 (0-2) /HPF Urine WBC 0-5 (0-5) /HPF Ur Squamous Epith Cells 11-20 (0-2) /HPF Urine Bacteria Trace (None Seen) Hyaline Casts 0-2 (0-2) /LPF Urine Test NEGATIVE (NEGATIVE) Influenza Type A (PCR) NEGATIVE (Negative) Influenza Type B (PCR) NEGATIVE (Negative) RSV RNA Qual (PCR) NEGATIVE (Negative) SARS-CoV-2 RNA (RT-PCR) NEGATIVE (Negative) S. pyogenes GrpA VELMA Negative (Negative) Independent Interpretation I performed an independent interpretation of an: CT Scan Radiology Impression Discussion of test interpretation with radiology: I have reviewed the radiologist's reading. Independent Historian Clinical information obtained from an independent historian. History obtained from or confirmed by: Other ( patient) Prescription Management I considered prescription management with: Antibiotic and Other Discharge Plan Discharge Clinical Impression: Bronchitis, Gastroenteritis, Abdominal pain Patient Disposition: Left Against Medical Advice Instructions: Gastroenteritis (ED), Acute Bronchitis (ED), Abdominal Pain (ED) Additional Instructions: recommend follow-up with the primary care provider. Return to the ED immediately for any chest pain, shortness of breath, coughing up blood, abdominal pain, blood in stool, leg swelling, calf pain, chest pain on inspiration, or any other concerning symptoms. do not take Hycodan while driving or at work side effects drowsiness. Prescriptions: New albuterol sulfate 90 mcg/actuation HFA aerosol inhaler 2 puff inhalation Q4-6H PRN (Reason: shortness of breath or wheezing) Qty: 8.5 0RF azithromycin 250 mg tablet See Rx Instructions .ROUTE .COMPLEX Qty: 6 0RF Rx Instructions: For 250 mg dose pack: take 500 mg today (day 1), then 250 mg for 4 days (days 2-5) hydrocodone-homatropine [Hycodan (with homatropine)] 5-1.5 mg/5 mL solution 5 ml PO Q4-6H PRN (Reason: cough) 3 Days Qty: 90 0RF Rx Instructions: Partial Fill upon patient request. No Action ondansetron HCl [Zofran] 4 mg tablet 4 mg PO Q8H PRN (Reason: nausea and vomiting) Qty: 10 0RF cephalexin 500 mg capsule 500 mg PO QID 10 Days Qty: 40 0RF doxycycline hyclate 100 mg tablet 100 mg PO BID Qty: 20 0RF prednisone 20 mg tablet 40 mg PO DAILY 5 Days Qty: 10 0RF cyclobenzaprine 10 mg tablet 10 mg PO BEDTIME PRN (Reason: muscle spasm) 7 Days Qty: 7 0RF Rx Instructions: side effect is drowsiness. ibuprofen 400 mg tablet 400 mg PO Q6H PRN (Reason: pain) 7 Days Qty: 28 0RF omeprazole 20 mg tablet,delayed release (DR/EC) 20 mg PO DAILY Qty: 14 0RF ondansetron 4 mg tablet,disintegrating 4 mg PO Q8H PRN (Reason: nausea and vomiting) Qty: 20 0RF Stand Alone Forms: Against Medical Advice, Work/School Release Interventions: ED Discharge Assessment Last Done: 07/22/24 14:15 Discharge Date/Time: 07/22/24 14:16 Print Language: [place]se
[2024-07-22 14:15] VITALS: BP 127/85; PULSE 82; RESP 18; TEMP 36.7; O2SAT 100
--- NOTE | 2024-07-22 14:16 | PC.NURSE ---
Pt. leaving AMA, understands AMA and still deciding to leave. Pt. refusing vital signs at this time. IV taken out.
== END 2024-07-22 14:16 | disposition left against medical advice (07) ==
PROVIDERS: Physician Assistant; Emergency Provider Emergency Medicine Emergency Medical Services
DX: J40 Bronchitis, not specified as acute or chronic (principal); K52.9 Noninfective gastroenteritis and colitis, unspecified; R10.9 Unspecified abdominal pain; Z03.818 Encounter for observation for suspected exposure to other biological agents ruled out; Z53.29 Procedure and treatment not carried out because of patient's decision for other reasons
CPT/HCPCS: 0241U; 71046; 80053; 81001; 81025; 83690; 85025; 87651; 96360; 99284; 99285

== ENCOUNTER → 2024-07-22 09:43 | Outpatient (BNV) | payer SELFPAY | PROVIDERS: Emergency Provider Emergency Medicine Emergency Medical Services; Visit Provider Radiology Diagnostic Radiology | DX: R05.9 Cough, unspecified (principal); R50.9 Fever, unspecified | CPT/HCPCS: 71046 ==